=== PATIENT | male | born 1950 | race Caucasian/White ===

== ENCOUNTER 2019-11-04 16:10 | Inpatient (IN) ==
[2019-11-04 17:37] LABS: Basophils # 0.1 K/mcL (0.0-0.2); Basophils % 0.5 %; Eosinophils # 0.1 K/mcL (0.0-0.6); Eosinophils % 1.1 %; Hemoglobin 15.6 g/dL (12.9-16.9); Immature Granulocytes % 0.4 % (0-4); Lymphocytes # 1.7 K/mcL (0.6-4.6); Lymphocytes % 17.3 %; Mean Corpuscular HGB Conc 32.5 g/dL (31.6-35.5); Mean Corpuscular Hemoglobin 29.9 pg (28.0-33.3); Mean Corpuscular Volume 92.1 fL (83.0-100.0); Mean Platelet Volume 10.9 fL (9.4-12.4); Monocytes # 0.7 K/mcL (0.0-1.3); Monocytes % 7.3 %; Neutrophils # 7.1 K/mcL (1.6-8.9); Platelet Count 231 K/mcL (140-400); Red Blood Count 5.21 M/mcL (4.19-5.50); Segmented Neutrophils % 73.4 %; White Blood Count 9.7 K/mcL (4.3-11.1)
[2019-11-04 17:46] LABS: INR 1.1; Prothrombin Time 12.1 Seconds (9.4-12.1)
[2019-11-04 17:49] LABS: Activated Partial Thrombo Time 31.5 Seconds (26.0-36.0)
[2019-11-04 18:02] LABS: Albumin/Globulin Ratio 1.3 (1.1-2.2); Bilirubin,Direct 0.1 mg/dL (0.0-0.2); Bilirubin,Indirect 0.7 mg/dL (0.0-1.0); Bilirubin,Total 0.8 mg/dL (0.3-1.0); Calcium 9.5 mg/dL (8.6-10.3); Globulin 3.2 g/dL (2.4-3.5); Potassium 4.1 mEq/L (3.5-5.1); Total Protein 7.2 g/dL (6.4-8.9); Troponin I 0.04 ng/mL (< 0.04)
[2019-11-04] MEDS ORDERED: *HR* Heparin 5,000 UNIT/ML VIAL IVP ONE (18:09)
[2019-11-04] MEDS ORDERED: *HR* Heparin 5,000 UNIT/ML VIAL IVP PRN ×2 (18:09)
[2019-11-04 18:20] LABS: Heparin anti-factor XA UFH < 0.04 IU/mL (0.30-0.70)
[2019-11-04] MEDS: Heparin 25,000 UNIT/250 ML D5W 25,000 UNIT/250 ML IV.SOLN IVC SCH (19:33)
[2019-11-04] MEDS ORDERED: Naloxone 0.4 MG/ML INJ IVP PRN (21:23)
[2019-11-04] MEDS ORDERED: traZODone 50 MG TABLET PO PRN (21:27)
[2019-11-05 02:41] LABS: Calcium 9.3 mg/dL (8.6-10.3); Troponin I 0.04 ng/mL (< 0.04)
[2019-11-05 02:49] LABS: Hematocrit 47.1 % (37.5-50.1); Mean Corpuscular HGB Conc 31.8 g/dL (31.6-35.5); Mean Corpuscular Volume 91.1 fL (83.0-100.0); Mean Platelet Volume 11.6 fL (9.4-12.4); Platelet Count 240 K/mcL (140-400); Red Blood Count 5.17 M/mcL (4.19-5.50); Red Cell Distribution Width 13.1 % (11.5-14.5); White Blood Count 8.5 K/mcL (4.3-11.1)
[2019-11-05] MEDS ORDERED: 0.9 % Sodium Chloride 1,000 ML IVC ONE (03:49)
[2019-11-05] MEDS: Aspirin 81 MG TAB.CHEW PO SCH (08:15)
[2019-11-05] MEDS ORDERED: Nitroglycerin 0.4 MG TAB.SUBL SL PRN (08:20)
[2019-11-05] MEDS ORDERED: Ipratropium/Albuterol Neb 3 ML IH PRN (08:21)
[2019-11-05 13:42] LABS: Potassium 3.9 mEq/L (3.5-5.1)
[2019-11-05] MEDS: Heparin 25,000 UNIT/250 ML D5W 25,000 UNIT/250 ML IV.SOLN IVC SCH (14:21)
[2019-11-05] MEDS: 0.9 % Sodium Chloride 1,000 ML IVC SCH ×2 (14:23→23:27)
[2019-11-05 15:44] LABS: Protein/Creatinine Ratio,Urine 1.5 mg/mg (0.00-0.20)
[2019-11-05 16:42] LABS: Bilirubin,Urine Negative (Negative); Blood,Urine Small (Negative); Clarity,Urine Clear (Clear); Color,Urine Yellow (Yellow); Glucose,Urine (UA) 500 mg/dL (Normal); Ketones,Urine Negative (Negative); Leukocyte Esterase,Urine Negative (Negative); Nitrite,Urine Negative (Negative); PH,Urine 5.5 pH Units (5.0-8.0); Protein,Urine >=300 mg/dL (Neg-Trace); Specific Gravity,Urine >= 1.030 (1.010-1.025); Urobilinogen,Urine Normal (Normal)
[2019-11-05 17:14] LABS: Bacteria,Urine None Seen per hpf (None-Few); Hyaline Casts,Urine None Seen per lpf (None-Few); Squamous Epithelial Cell,Urine Many per lpf (None-Few)
[2019-11-06 05:39] LABS: Basophils % 0.6 %; Eosinophils # 0.2 K/mcL (0.0-0.6); Eosinophils % 2.3 %; Hemoglobin 14.4 g/dL (12.9-16.9); Immature Granulocytes % 0.1 % (0-4); Lymphocytes % 28.4 %; Mean Corpuscular Hemoglobin 29.6 pg (28.0-33.3); Mean Corpuscular Volume 92.6 fL (83.0-100.0); Mean Platelet Volume 11.3 fL (9.4-12.4); Monocytes # 0.5 K/mcL (0.0-1.3); Monocytes % 7.6 %; Neutrophils # 4.3 K/mcL (1.6-8.9); Platelet Count 183 K/mcL (140-400); Red Blood Count 4.86 M/mcL (4.19-5.50); Red Cell Distribution Width 12.8 % (11.5-14.5)
[2019-11-06 06:24] LABS: Calcium 8.9 mg/dL (8.6-10.3); Magnesium 1.5 mg/dL (1.6-2.6); Phosphorous 3.2 mg/dL (2.7-4.5); Potassium 3.9 mEq/L (3.5-5.1)
[2019-11-06] MEDS: Verapamil ER (24 HR) 240 MG TABLET.ER PO SCH (07:50)
[2019-11-06] MEDS: Aspirin 81 MG TAB.CHEW PO SCH (07:51)
[2019-11-06] MEDS ORDERED: 0.9 % Sodium Chloride 500 ML IVC SCH (08:15)
[2019-11-06] MEDS: *HR* Rivaroxaban 15 MG TABLET PO SCH ×2 (09:53→16:39)
[2019-11-06] MEDS ORDERED: *HR* Dextrose 50 % in Water (Syg) 50 ML SYRINGE IVP PRN (12:21)
[2019-11-06] MEDS ORDERED: Dextrose Gel 15 GM/37.5 ML TUBE PO PRN ×2 (12:21)
[2019-11-06] MEDS ORDERED: D5% in Water 1,000 ML IVC PRN (12:21)
[2019-11-06] MEDS: Insulin LISPRO 300 UNITS/3 ML VIAL SQ SCH (16:39)
[2019-11-06] MEDS ORDERED: Insulin DETEMIR 100 UNIT/ML X5UNITS SQ SCH (21:00)
[2019-11-07 07:02] LABS: Calcium 9.3 mg/dL (8.6-10.3); Magnesium 1.7 mg/dL (1.6-2.6); Phosphorous 3.3 mg/dL (2.7-4.5); Potassium 3.7 mEq/L (3.5-5.1)
[2019-11-07] MEDS: Insulin LISPRO 300 UNITS/3 ML VIAL SQ SCH ×2 (08:16→11:35)
[2019-11-07] MEDS: Verapamil ER (24 HR) 240 MG TABLET.ER PO SCH (08:17)
[2019-11-07] MEDS: *HR* Rivaroxaban 15 MG TABLET PO SCH (08:17)
[2019-11-07] MEDS: Aspirin 81 MG TAB.CHEW PO SCH (08:17)
[2019-11-07 11:21] VITALS: BP 115/77
[2019-11-27] MEDS ORDERED: *HR* Rivaroxaban 10 MG TABLET PO SCH (17:00)
== END 2019-11-07 13:46 | disposition home or self-care (01) | DRG 176 ==
LOC: 2ANU 16:10 → EMEROOARM 16:10 → 2ANU 20:13 → SUATTDRO 11-05 11:29
PROVIDERS: ADMIT Family Medicine; ATTEND Internal Medicine